=== PATIENT | female | born 1995 | race Two or more races ===

== ENCOUNTER 2021-12-21 14:30 | Inpatient (IN) | payer OTHER ==
[~2021-12-21] VITALS: Ht 165.1 cm; Wt 114.8 kg
[2021-12-31] MEDS ORDERED: PRENATAL + DHA1 EAC1 (13:59)
[2022-01-03] MEDS ORDERED: KETO10TA2 PO (08:45)
== END 2022-01-03 10:42 | disposition home or self-care (01) | DRG 788 ==
LOC: LDR 12-30 14:30 → OB/GYN 12-31 13:27 → LDR 12-31 13:27 → OB/GYN 01-01 00:11
PROVIDERS: ADMIT Obstetrics & Gynecology; ATTEND Obstetrics & Gynecology
PROC: 4A1HXCZ Monitoring of Products of Conception, Cardiac Rate, External Approach (ICD-10-PCS; 2021-12-31)
PROC: 10D00Z1 Extraction of Products of Conception, Low, Open Approach (ICD-10-PCS; principal; 2021-12-31 21:00)
DX: O62.1 Secondary uterine inertia (principal); O33.8 Maternal care for disproportion of other origin; Z3A.40 40 weeks gestation of pregnancy; Z37.0 Single live birth; Z20.822 Contact with and (suspected) exposure to COVID-19

== ENCOUNTER 2021-12-26 07:52 | Outpatient (CLI) | payer OTHER | END 2021-12-26 08:50 | disposition home or self-care (01) | LOC: NST 07:52 | PROVIDERS: ATTEND Obstetrics & Gynecology | DX: Z34.83 Encounter for supervision of other normal pregnancy, third trimester (principal) ==